=== PATIENT | male | born 1945 | race African-American/Black ===

== ENCOUNTER 2023-07-11 08:56 | Emergency (ER) | payer MEDICARE, OTHER ==
[~2023-07-11] VITALS: Ht 188 cm; Wt 78.2 kg
[~2023-07-11 08:56] MED LIST: ALLO300T2 PO; UNKNOWN MEDS; WARF1TAB9 PO
[2023-07-11 09:04] VITALS: TEMP 98.2
[2023-07-11 09:26] LABS: BAND NEUTROPHILS % (MANUAL) 0 % (0-5)
[2023-07-11 09:41] LABS: HEMATOCRIT 40.1 % (41-53); HEMOGLOBIN 13.8 g/dL (13.5-17.5); MEAN CORPUSCULAR HEMOGLOBIN 32.8 pg (26.0-34.0); MEAN CORPUSCULAR HGB CONC 34.4 G/dL (31.0-37.0); MEAN CORPUSCULAR VOLUME 95 fL (80-100); PLATELET COUNT (AUTO) 198 K/uL (150-450); RED CELL DISTRIBUTION WIDTH 16.1 % (11.5-14.5); WHITE BLOOD COUNT (AUTO) 5.9 K/uL (4.5-11.0)
[2023-07-11 09:55] LABS: ANION GAP 9 mmol/L (8-16); CALCIUM, TOTAL 9.8 mg/dL (8.8-10.5); CARBON DIOXIDE 26 mmol/L (22-29); CHLORIDE 98 mmol/L (98-107); CREATININE 1.07 mg/dL (0.60-1.30); GLOMERULAR FILTR. RATE CALC > 60 mL/min (>60); GLUCOSE,RANDOM 135 mg/dL (70-110); POTASSIUM 3.9 mmol/L (3.5-5.1); SODIUM SERUM 133 mmol/L (136-145); TROPONIN I-HIGH SENSITIVITY 8 ng/L (<76); UREA NITROGEN, BLOOD 7 mg/dL (7-18)
[2023-07-11 09:57] LABS: ALANINE AMINOTRANSFERASE 22 U/L (12-78); ALBUMIN 4.1 g/dL (3.4-5.0); ALKALINE PHOSPHATASE 103 U/L (46-116); ASPARTATE AMINOTRANSFERASE 23 U/L (15-37); BILIRUBIN,TOTAL 2.1 mg/dL (0.1-1.0); TOTAL PROTEIN, SERUM 8.1 g/dL (6.4-8.2)
[2023-07-11 10:04] LABS: LYMPHOCYTES % (MANUAL) 40 % (22-44); MONOCYTES % (MANUAL) 1 % (2-9); RBC MORPHOLOGY COMMENT NORMAL RBC MORPH; SEGMENTED NEUTROPHILS % 59 % (40-70); TOTAL CELLS COUNTED 100
[2023-07-11 10:14] VITALS: BP 156/99; PULSE 100; RESP 18
== END 2023-07-11 11:22 | disposition home or self-care (01) ==
LOC: EMS 09:14
DX: R26.81 Unsteadiness on feet (principal); I10 Essential (primary) hypertension; Z98.890 Other specified postprocedural states
CPT/HCPCS: 70450; 80053; 84484; 85007; 85027; 93005; 99284